=== PATIENT | male | born 1990 | race Caucasian/White ===

== ENCOUNTER 2017-03-31 16:35 | Emergency (ER) | payer BC, OTHER ==
[~2017-03-31] VITALS: Wt 65.9 kg
[2017-03-31] MEDS ORDERED: IBUPROFEN 800 MG TAB PO ONE (18:30)
--- NOTE | 2017-03-31 18:44 | RADRPT ---
PROCEDURE: XR Wrist. CLINICAL INDICATION: Fall, left wrist pain TECHNIQUE: 4 views of the left wrist were performed. COMPARISON: No prior studies are available for comparison. FINDINGS: There is no acute fracture or dislocation. Alignment is normal. Joint spaces are preserved. There is a bony projection along the radial margin of the scaphoid tubercle measuring 5 mm, either s equela of a previous fracture, now healed versus small osteochondroma. IMPRESSION: 1. No radiographic evidence of acute osseous abnormality. 2. A 5 mm bony projection at the scaphoid tubercle may be sequela of remote trauma or small osteocho ndroma. RPTAT: UU .Modesto Gabriel MD, Date Time Electronically viewed and signed by .Modesto Gabriel MD, on 03/31/2017 18:44 .K/
[2017-03-31] MEDS ORDERED: IBUP-1542 PO (18:53)
[2017-03-31 19:02] VITALS: BP 135/62; PULSE 97; RESP 20; TEMP 98.1
--- NOTE | 2017-03-31 19:07 | ERD ---
ER Documentation Chief Complaint Chief Complaint l. wrist pain s/p skateboarding trauma yest HPI 26-year-old male complaining of left wrist pain since last night. Patient stated that he fell while skateboarding, versus fall with his left wrist outstretched in front of him. He is complaining pain in the ventral aspect of the left radius. Patient is right-hand dominant. Denies hitting his head in the fall. Denies any other injuries. ROS All systems reviewed and are negative except as per history of present illness. Medications Home Meds Active Scripts Ibuprofen* (Motrin*) 600 Mg Tab, 600 MG PO Q6H Y for PAIN AND OR ELEVATED TEMP, #30 TAB Prov:MARCELLUS ARROYO AIR DRIER MACHINE OPERATOR 03/31/17 Allergies Allergies: Coded Allergies: No Known Allergy (Verified Allergy, Unknown, 05/14/08) PMhx/Soc History of Surgery: No Anesthesia Reaction: No Hx Neurological Disorder: No Hx Respiratory Disorders: No Hx Cardiac Disorders: No Hx Psychiatric Problems: No Hx Miscellaneous Medical Probl: No Hx Alcohol Use: Yes Hx Substance Use: Yes (MARIJUANA) Hx Tobacco Use: Yes Smoking Status: Current every day smoker Physical Exam Vitals Vital Signs Date Time Temp Pulse Resp B/P Pulse Ox O2 Delivery O2 Flow Rate FiO2 03/31/17 17:37 98.1 101 20 133/64 97 Physical Exam General: Patient is well-developed. Awake, alert, and conversant, in no apparent distress Skin: Warm and dry Head: Normocephalic, atraumatic without palpable deformities Eyes: Pupils equal, round, and reactive to light. Extraocular movements intact. No periorbital ecchymosis or step-off Chest: No surface trauma. Nontender without crepitus or deformity. No palpable subcutaneous air. Lungs have good tidal volume, lungs clear to auscultate bilaterally Heart: Regular rate and rhythm. No murmur, rub, or gallop Extremities: Left hand swollen at the base of the first and second digit. This at the distal left radius. No snuffbox tenderness.. Crease range of motion of left hand and left wrist due to pain. Good strength in all extremities. Sensation to light touch intact. All peripheral pulses are intact and equal Neuro: Alert and oriented 4, GCS 15, cranial nerves II through XII intact. Motor and sensory exam is nonfocal. Reflexes are symmetric Results 24 hrs Current Medications Medications (Trade) Dose Ordered Sig/Danielle Route PRN Reason Start Time Stop Time Status Last Admin Dose Admin Ibuprofen (Motrin) 800 mg ONCE ONCE PO 03/31/17 18:30 03/31/17 18:31 DC 03/31/17 18:47 PROCEDURE: XR Wrist. CLINICAL INDICATION: Fall, left wrist pain TECHNIQUE: 4 views of the left wrist were performed. COMPARISON: No prior studies are available for comparison. FINDINGS: There is no acute fracture or dislocation. Alignment is normal. Joint spaces are preserved. There is a bony projection along the radial margin of the scaphoid tubercle measuring 5 mm, either sequela of a previous fracture, now healed versus small osteochondroma. IMPRESSION: 1. No radiographic evidence of acute osseous abnormality. 2. A 5 mm bony projection at the scaphoid tubercle may be sequela of remote trauma or small osteochondroma. RPTAT: UU .Modesto Gabriel MD, MD Date Time Electronically viewed and signed by .Modesto Gabriel MD, MD on 03/31/2017 18: 44 .K/ CC: MARCELLUS ARROYO AIR DRIER MACHINE OPERATOR Procedures/MDM Well-appearing 26-year-old male complaining of left wrist pain after falling on outstretched hand yesterday. X-ray of the left wrist is negative for acute fractures or dislocations. Low suspicion for occult scaphoid fracture. The area of injury was immobilized with a Velcro wrist splint. Patient was noted to be comfortable and neurovascularly intact both before and after the immobilization. Patient was given ibuprofen in the ED for pain. Patient appears well, stable for discharge and outpatient management. Medical decision making shared with patient and family. Education provided to patient and family. Patient and family expressed understanding of the plan. Medications on discharge: Ibuprofen. Follow-up: Primary care provider in 2-3 days or return to ED if worse. Disclaimer: Inadvertent spelling and grammatical errors are likely due to EHR/ dictation software use and do not reflect on the overall quality of patient care. Also, please note that the electronic time recorded on this note does not necessarily reflect the actual time of the patient encounter. Departure Diagnosis: Primary Impression: Wrist sprain Encounter type: initial encounter Laterality: left Qualified Code: S63.502A - Sprain of left wrist, initial encounter Condition: Stable Patient Instructions: Wrist Sprain Referrals: DOCTOR,NOT ON STAFF COMMUNITY CLINICS YOU HAVE RECEIVED A MEDICAL SCREENING EXAM AND THE RESULTS INDICATE THAT YOU DO NOT HAVE A CONDITION THAT REQUIRES URGENT TREATMENT IN THE EMERGENCY DEPARTMENT. FURTHER EVALUATION AND TREATMENT OF YOUR CONDITION CAN WAIT UNTIL YOU ARE SEEN IN YOUR DOCTORS OFFICE WITHIN THE NEXT 1-2 DAYS. IT IS YOUR RESPONSIBILITY TO MAKE AN APPOINTMENT FOR FOLOW-UP CARE. IF YOU HAVE A PRIMARY DOCTOR --you should call your primary doctor and schedule an appointment IF YOU DO NOT HAVE A PRIMARY DOCTOR YOU CAN CALL OUR PHYSICIAN REFERRAL HOTLINE AT IF YOU CAN NOT AFFORD TO SEE A PHYSICIAN YOU CAN CHOSE FROM THE FOLLOWING ON LICENSE OF [facility] CLINICS [facility] [address] [facility] [address] [employer] [facility] [address] [facility] [address] [facility] [address] [facility]. [facility]. [address] Additional Instructions: Call your primary care doctor TOMORROW for an appointment during the next 1 WEEK.Tell the payroll secretary that you were referred from this facility.See the doctor sooner or return here if your condition worsens before your appointment time. MARCELLUS ARROYO NP Mar 31, 2017 19:07
--- NOTE | 2017-03-31 19:07 | ERD ---
ER Documentation Chief Complaint Chief Complaint l. wrist pain s/p skateboarding trauma yest HPI 26-year-old male complaining of left wrist pain since last night. Patient stated that he fell while skateboarding, versus fall with his left wrist outstretched in front of him. He is complaining pain in the ventral aspect of the left radius. Patient is right-hand dominant. Denies hitting his head in the fall. Denies any other injuries. ROS All systems reviewed and are negative except as per history of present illness. Medications Home Meds Active Scripts Ibuprofen* (Motrin*) 600 Mg Tab, 600 MG PO Q6H Y for PAIN AND OR ELEVATED TEMP, #30 TAB Prov:MARCELLUS ARROYO VISUAL EDUCATION TEACHER 03/31/17 Allergies Allergies: Coded Allergies: No Known Allergy (Verified Allergy, Unknown, 05/14/08) PMhx/Soc History of Surgery: No Anesthesia Reaction: No Hx Neurological Disorder: No Hx Respiratory Disorders: No Hx Cardiac Disorders: No Hx Psychiatric Problems: No Hx Miscellaneous Medical Probl: No Hx Alcohol Use: Yes Hx Substance Use: Yes (MARIJUANA) Hx Tobacco Use: Yes Smoking Status: Current every day smoker Physical Exam Vitals Vital Signs Date Time Temp Pulse Resp B/P Pulse Ox O2 Delivery O2 Flow Rate FiO2 03/31/17 17:37 98.1 101 20 133/64 97 Physical Exam General: Patient is well-developed. Awake, alert, and conversant, in no apparent distress Skin: Warm and dry Head: Normocephalic, atraumatic without palpable deformities Eyes: Pupils equal, round, and reactive to light. Extraocular movements intact. No periorbital ecchymosis or step-off Chest: No surface trauma. Nontender without crepitus or deformity. No palpable subcutaneous air. Lungs have good tidal volume, lungs clear to auscultate bilaterally Heart: Regular rate and rhythm. No murmur, rub, or gallop Extremities: Left hand swollen at the base of the first and second digit. This at the distal left radius. No snuffbox tenderness.. Crease range of motion of left hand and left wrist due to pain. Good strength in all extremities. Sensation to light touch intact. All peripheral pulses are intact and equal Neuro: Alert and oriented 4, GCS 15, cranial nerves II through XII intact. Motor and sensory exam is nonfocal. Reflexes are symmetric Results 24 hrs Current Medications Medications (Trade) Dose Ordered Sig/Danielle Route PRN Reason Start Time Stop Time Status Last Admin Dose Admin Ibuprofen (Motrin) 800 mg ONCE ONCE PO 03/31/17 18:30 03/31/17 18:31 DC 03/31/17 18:47 PROCEDURE: XR Wrist. CLINICAL INDICATION: Fall, left wrist pain TECHNIQUE: 4 views of the left wrist were performed. COMPARISON: No prior studies are available for comparison. FINDINGS: There is no acute fracture or dislocation. Alignment is normal. Joint spaces are preserved. There is a bony projection along the radial margin of the scaphoid tubercle measuring 5 mm, either sequela of a previous fracture, now healed versus small osteochondroma. IMPRESSION: 1. No radiographic evidence of acute osseous abnormality. 2. A 5 mm bony projection at the scaphoid tubercle may be sequela of remote trauma or small osteochondroma. RPTAT: UU .Modesto Gabriel MD, MD Date Time Electronically viewed and signed by .Modesto Gabriel MD, MD on 03/31/2017 18: 44 .K/ CC: MARCELLUS ARROYO VISUAL EDUCATION TEACHER Procedures/MDM Well-appearing 26-year-old male complaining of left wrist pain after falling on outstretched hand yesterday. X-ray of the left wrist is negative for acute fractures or dislocations. Low suspicion for occult scaphoid fracture. The area of injury was immobilized with a Velcro wrist splint. Patient was noted to be comfortable and neurovascularly intact both before and after the immobilization. Patient was given ibuprofen in the ED for pain. Patient appears well, stable for discharge and outpatient management. Medical decision making shared with patient and family. Education provided to patient and family. Patient and family expressed understanding of the plan. Medications on discharge: Ibuprofen. Follow-up: Primary care provider in 2-3 days or return to ED if worse. Disclaimer: Inadvertent spelling and grammatical errors are likely due to EHR/ dictation software use and do not reflect on the overall quality of patient care. Also, please note that the electronic time recorded on this note does not necessarily reflect the actual time of the patient encounter. Departure Diagnosis: Primary Impression: Wrist sprain Encounter type: initial encounter Laterality: left Qualified Code: S63.502A - Sprain of left wrist, initial encounter Condition: Stable Patient Instructions: Wrist Sprain Referrals: DOCTOR,NOT ON STAFF COMMUNITY CLINICS YOU HAVE RECEIVED A MEDICAL SCREENING EXAM AND THE RESULTS INDICATE THAT YOU DO NOT HAVE A CONDITION THAT REQUIRES URGENT TREATMENT IN THE EMERGENCY DEPARTMENT. FURTHER EVALUATION AND TREATMENT OF YOUR CONDITION CAN WAIT UNTIL YOU ARE SEEN IN YOUR DOCTORS OFFICE WITHIN THE NEXT 1-2 DAYS. IT IS YOUR RESPONSIBILITY TO MAKE AN APPOINTMENT FOR FOLOW-UP CARE. IF YOU HAVE A PRIMARY DOCTOR --you should call your primary doctor and schedule an appointment IF YOU DO NOT HAVE A PRIMARY DOCTOR YOU CAN CALL OUR PHYSICIAN REFERRAL HOTLINE AT IF YOU CAN NOT AFFORD TO SEE A PHYSICIAN YOU CAN CHOSE FROM THE FOLLOWING [facility] CLINICS [facility] [address] [facility] [address] [employer] [facility] [address] [facility] [address] [facility] [address] [facility]. [facility]. [address] Additional Instructions: Call your primary care doctor TOMORROW for an appointment during the next 1 WEEK.Tell the legal secretary receptionist that you were referred from this facility.See the doctor sooner or return here if your condition worsens before your appointment time. MARCELLUS ARROYO NP Mar 31, 2017 19:07
--- NOTE | 2017-03-31 19:07 | ERD ---
ER Documentation Chief Complaint Chief Complaint l. wrist pain s/p skateboarding trauma yest HPI 26-year-old male complaining of left wrist pain since last night. Patient stated that he fell while skateboarding, versus fall with his left wrist outstretched in front of him. He is complaining pain in the ventral aspect of the left radius. Patient is right-hand dominant. Denies hitting his head in the fall. Denies any other injuries. ROS All systems reviewed and are negative except as per history of present illness. Medications Home Meds Active Scripts Ibuprofen* (Motrin*) 600 Mg Tab, 600 MG PO Q6H Y for PAIN AND OR ELEVATED TEMP, #30 TAB Prov:MARCELLUS ARROYO SERVICE CREW LEADER 03/31/17 Allergies Allergies: Coded Allergies: No Known Allergy (Verified Allergy, Unknown, 05/14/08) PMhx/Soc History of Surgery: No Anesthesia Reaction: No Hx Neurological Disorder: No Hx Respiratory Disorders: No Hx Cardiac Disorders: No Hx Psychiatric Problems: No Hx Miscellaneous Medical Probl: No Hx Alcohol Use: Yes Hx Substance Use: Yes (MARIJUANA) Hx Tobacco Use: Yes Smoking Status: Current every day smoker Physical Exam Vitals Vital Signs Date Time Temp Pulse Resp B/P Pulse Ox O2 Delivery O2 Flow Rate FiO2 03/31/17 17:37 98.1 101 20 133/64 97 Physical Exam General: Patient is well-developed. Awake, alert, and conversant, in no apparent distress Skin: Warm and dry Head: Normocephalic, atraumatic without palpable deformities Eyes: Pupils equal, round, and reactive to light. Extraocular movements intact. No periorbital ecchymosis or step-off Chest: No surface trauma. Nontender without crepitus or deformity. No palpable subcutaneous air. Lungs have good tidal volume, lungs clear to auscultate bilaterally Heart: Regular rate and rhythm. No murmur, rub, or gallop Extremities: Left hand swollen at the base of the first and second digit. This at the distal left radius. No snuffbox tenderness.. Crease range of motion of left hand and left wrist due to pain. Good strength in all extremities. Sensation to light touch intact. All peripheral pulses are intact and equal Neuro: Alert and oriented 4, GCS 15, cranial nerves II through XII intact. Motor and sensory exam is nonfocal. Reflexes are symmetric Results 24 hrs Current Medications Medications (Trade) Dose Ordered Sig/Danielle Route PRN Reason Start Time Stop Time Status Last Admin Dose Admin Ibuprofen (Motrin) 800 mg ONCE ONCE PO 03/31/17 18:30 03/31/17 18:31 DC 03/31/17 18:47 PROCEDURE: XR Wrist. CLINICAL INDICATION: Fall, left wrist pain TECHNIQUE: 4 views of the left wrist were performed. COMPARISON: No prior studies are available for comparison. FINDINGS: There is no acute fracture or dislocation. Alignment is normal. Joint spaces are preserved. There is a bony projection along the radial margin of the scaphoid tubercle measuring 5 mm, either sequela of a previous fracture, now healed versus small osteochondroma. IMPRESSION: 1. No radiographic evidence of acute osseous abnormality. 2. A 5 mm bony projection at the scaphoid tubercle may be sequela of remote trauma or small osteochondroma. RPTAT: UU .Modesto Gabriel MD, MD Date Time Electronically viewed and signed by .Modesto Gabriel MD, MD on 03/31/2017 18: 44 .K/ CC: MARCELLUS ARROYO SERVICE CREW LEADER Procedures/MDM Well-appearing 26-year-old male complaining of left wrist pain after falling on outstretched hand yesterday. X-ray of the left wrist is negative for acute fractures or dislocations. Low suspicion for occult scaphoid fracture. The area of injury was immobilized with a Velcro wrist splint. Patient was noted to be comfortable and neurovascularly intact both before and after the immobilization. Patient was given ibuprofen in the ED for pain. Patient appears well, stable for discharge and outpatient management. Medical decision making shared with patient and family. Education provided to patient and family. Patient and family expressed understanding of the plan. Medications on discharge: Ibuprofen. Follow-up: Primary care provider in 2-3 days or return to ED if worse. Disclaimer: Inadvertent spelling and grammatical errors are likely due to EHR/ dictation software use and do not reflect on the overall quality of patient care. Also, please note that the electronic time recorded on this note does not necessarily reflect the actual time of the patient encounter. Departure Diagnosis: Primary Impression: Wrist sprain Encounter type: initial encounter Laterality: left Qualified Code: S63.502A - Sprain of left wrist, initial encounter Condition: Stable Patient Instructions: Wrist Sprain Referrals: DOCTOR,NOT ON STAFF COMMUNITY CLINICS YOU HAVE RECEIVED A MEDICAL SCREENING EXAM AND THE RESULTS INDICATE THAT YOU DO NOT HAVE A CONDITION THAT REQUIRES URGENT TREATMENT IN THE EMERGENCY DEPARTMENT. FURTHER EVALUATION AND TREATMENT OF YOUR CONDITION CAN WAIT UNTIL YOU ARE SEEN IN YOUR DOCTORS OFFICE WITHIN THE NEXT 1-2 DAYS. IT IS YOUR RESPONSIBILITY TO MAKE AN APPOINTMENT FOR FOLOW-UP CARE. IF YOU HAVE A PRIMARY DOCTOR --you should call your primary doctor and schedule an appointment IF YOU DO NOT HAVE A PRIMARY DOCTOR YOU CAN CALL OUR PHYSICIAN REFERRAL HOTLINE AT IF YOU CAN NOT AFFORD TO SEE A PHYSICIAN YOU CAN CHOSE FROM THE FOLLOWING [facility] CLINICS [facility] [address] [facility] [address] [employer] [facility] [address] [facility] [address] [facility] [address] [facility]. [facility]. [address] Additional Instructions: Call your primary care doctor TOMORROW for an appointment during the next 1 WEEK.Tell the alumni secretary that you were referred from this facility.See the doctor sooner or return here if your condition worsens before your appointment time. MARCELLUS ARROYO NP Mar 31, 2017 19:07
== END 2017-03-31 19:02 | disposition home or self-care (01) ==
LOC: FTE 16:35
DX: S63.502A Unspecified sprain of left wrist, initial encounter (principal); F17.210 Nicotine dependence, cigarettes, uncomplicated; V00.131A Fall from skateboard, initial encounter; Y92.9 Unspecified place or not applicable
CPT/HCPCS: 29125; 73110; Z7502; Z7610